=== PATIENT | female | born 1945 | race Caucasian/White ===

== ENCOUNTER 2017-02-04 19:31 | Emergency (ER) | payer OTHER ==
--- NOTE | 2017-02-04 20:06 | ED CLINICAL REPORT ---
Clinical Report - Physicians/Mid Levels [facility] [address] [place] [address] 02/04/2017 19:32 Patient: JUAN HOPSON Time Seen: 19:51 Alex 2016. Arrived- By ambulance. (BLS). Historian- patient and EMS personnel. CPT: Critical care < 74 min plus (#[id number]). EKG interpretation (#[id number]). HISTORY OF PRESENT ILLNESS Chief Complaint: CHEST PAIN. This started today 3 hours THERAPIST RESPIRATORY and is still present. Onset during light activity. At its maximum, severity described as moderate. When seen in the E.D., severity described as severe. Modifying factors. Not worsened by anything. Not relieved by anything. It is described as pressure and it is described as located in the right shoulder and arm and left shoulder and arm. The patient has had nausea and has experienced diaphoresis. No vomiting or difficulty breathing. Similar symptoms previously: None. Recent medical care: Not recently seen/assessed. REVIEW OF SYSTEMS No fever, chills, cough, pedal edema or calf pain. No fainting episodes, abdominal pain, black stools, difficulty with urination or skin rash. No enlarged lymph nodes, sore throat, diabetic symptoms or easy bruising. All systems otherwise negative, except as recorded above. PAST HISTORY Hypertension. No history of coronary artery disease, heart disease, lung disease, neurological disease or GI disease. No history of congestive heart failure, heart rhythm problems, pulmonary embolism, hyperlipidemia or diabetes mellitus. Medications: None. Allergies: Penicillin. SOCIAL HISTORY Heavy tobacco smoker (cigarette)- 1 pack per day. ADDITIONAL NOTES The nursing notes have been reviewed. PHYSICAL EXAM Vital Signs: 02/04/2017 19:35 BP: 95/72. HR: 61. RR: 22. O2 saturation: 97%. Temp: 98.0 F. Appearance: Alert. Appears to be in pain. Patient in moderate distress. Eyes: Eyes normal inspection. ENT: Pharynx normal. Neck: Normal inspection. No JVD or carotid bruit. CVS: Normal heart rate and rhythm. Heart sounds normal. Pulses normal. No cardiac murmur. Respiratory: No respiratory distress. Breath sounds normal. Chest nontender. Abdomen: Soft and nontender. Back: Normal external inspection. Skin: Skin warm. Normal skin color. No rash. Extremities: Extremities exhibit normal ROM. No calf tenderness. No lower extremity edema. Neuro: Oriented X 3. No motor deficit. No sensory deficit. LABS, X-RAYS, AND EKG EKG: No acute ischemia. ST elevation in lead I, II, III and aVF- consistent with inferior infarction. Prior EKG unavailable. The study has been interpreted contemporaneously. The study has been independently viewed by me. The EKG appears to be a good tracing. Laboratory Tests: CBC w Diff: (SUELLEN: 02/04/2017 19:50) ( MsgRcvd 02/04/2017 20:22) Final results Test Result Flag Units (Reference) WHITE BLOOD COUNT 15.7 H K/uL (4.5-11.5) RED BLOOD COUNT 5.29 H M/uL (4.00-5.20) HEMOGLOBIN 15.1 gm/dL (12.0-16.0) HEMATOCRIT 44.9 % (36.0-46.0) MEAN CELL VOLUME 85 fL (80-100) MEAN CORPUSCULAR HGB 29 pg (26-34) MEAN CORPUSCULAR HGB CONC 34 g/dL (31-37) RED CELL DISTRIBUTION WIDTH 13.9 % (11.6-14.8) PLATELET COUNT 378 K/uL (150-400) NEUTROPHIL % 65.2 % (50-75) LYMPH % 25.4 % (25-40) MONO % 7.3 % (3-14) EOSINOPHIL % 1.3 % (0-4) BASOPHIL % 0.8 % (0-2) PT with INR: (SUELLEN: 02/04/2017 19:50) ( MsgRcvd 02/04/2017 20:37) Final results Test Result Flag Units (Reference) INR 1.0 (0.8-1.2) Low Intensity Therapy: INR 1.5-2.0 PT range 18.5-23.1Mod.Intensity Therapy: INR 2.0-3.0 PT range 23.1-31.5High Intensity Therapy: INR 2.5-3.5 PT range 27.4-35.5High Intensity Therapy 2: INR 3.0-4.0 PT range 31.5-39.3 APTT 24 SECONDS (24-34) CHEM 13 PANEL: (SUELLEN: 02/04/2017 19:50) ( MsgRcvd 02/04/2017 20:29) Final results Test Result Flag Units (Reference) GLUCOSE 120 H mg/dL (70-110) BUN 20 H mg/dL (7-18) CREATININE 1.1 mg/dL (0.6-1.3) Estimated GFR 52.19 mL/min Estimated GFR- >60 mL/min Note: Persistent reduction over 3 months in eGFR<60 mL/min/1.73 m2 defines CKD. Patients with eGFR values>=60 mL/min/1.73 m2 may also have CKD if evidence ofpersistent proteinuria. Additional information may be foundat www.kidney.org. SODIUM 140 mmol/L (136-145) POTASSIUM 3.7 mmol/L (3.5-5.1) CHLORIDE 103 mmol/L (98-107) CARBON DIOXIDE 24 mmol/L (21-32) CALCIUM 9.2 mg/dL (8.5-10.1) TOTAL PROTEIN 7.2 g/dL (6.4-8.2) ALBUMIN 3.8 g/dL (3.3-5.0) BILIRUBIN, TOTAL 0.3 mg/dL (0.0-1.0) ALKALINE PHOSPHATASE 90 U/L (46-116) AST (SGOT) 14 L U/L (15-37) ALT (SGPT) 16 U/L (12-78) MAGNESIUM 2.0 mg/dL (1.8-2.4) CPK 62 U/L (24-260) TROPONIN I <0.05 ng/mL (0.00-1.5) TROPONIN REFERENCE RANGE:<0.1 NEGATIVE0.1-1.5 INDETERMINANT>1.5 POSITIVE . PROGRESS AND PROCEDURES Course of Care: heplock times 2 Oxygen 1 liter ASA 325 mg po Plavix 300 mg po Heparin 5,000 unit bolus Morphine 2 mg IV Morphine 4 mg IV Symptoms better. Critical care performed (30 minutes). Time is exclusive of separately billable procedures. Time includes: direct patient care, patient reassessment, coordination of patient care, interpretation of data (laboratory data, pulse oximetry and cardiac output measurements), review of patient's medical records, medical consultation and documentation of patient care- see progress notes. Procedures included in critical care time: peripheral IV placement and phlebotomy- see progress notes. Procedures excluded from critical care time: electrocardiography. Discussed case with health care provider (Reginald Jordan: [facility]: Accepts transfer.). Patient/family counseled. Disposition: Transferred to [facility]. CLINICAL IMPRESSION Acute inferior myocardial infarction with ST elevation (STEMI). Aspirin administered in ED. (Electronically signed by Roger Gonzalez MD 02/05/2017 15:29)
--- NOTE | 2017-02-04 20:06 | ED ORDER SUMMARY ---
..... Patient: JUAN HOPSON OrderSheet [facility] VisitID: [id number] [place] [address] 71y, F Registration Date/Time: 02/04/2017 ORDER SHEET Weight: 61.2 kg (stated) Allergies: Penicillin GENERAL ORDERS: EKG - ER Stat (19:40 02/04/2017 ASchmuck per protocol) (19:55 [facility] Cardiac Panel Stat (20:02/04/2017 AMcQuoid ER Tech1 verbal order read back to Dominic RODRIGUEZ) (Ack 20:11 AMcQuoid ER Tech1) (20:21 ASchmuck) PT with INR Urgent (:02/04/2017 AMcQuoid ER Tech1 verbal order read back to Dominic RODRIGUEZ) (Ack 20:11 AMcQuoid ER Tech1) (20:21 ASchmuck) PTT Urgent (:02/04/2017 AMcQuoid ER Tech1 verbal order read back to Dominic RODRIGUEZ) (Ack 20:11 AMcQuoid ER Tech1) (20:21 ASchmuck) MEDICATION ORDERS: Aspirin PO 325 mg (NOW) (19:56 02/04/2017 Dominic RODRIGUEZ) (20:25 ASchmuck) Plavix PO 300 mg (NOW) (19:56 02/04/2017 Dominic RODRIGUEZ) (20:25 ASchmuck) IV FLUIDS: Heparin IV : initial bolus 5,000 units, then 1,000 units per hour for 6h (NOW); Urgent (19:56 02/04/2017 Dominic RODRIGUEZ) (20:26 ASchmuck) Morphine IV 2 mg (NOW) (19:57 02/04/2017 Dominic RODRIGUEZ) (20:27 ASchmuck) Zofran IV 4 mg (NOW) (19:57 02/04/2017 Dominic RODRIGUEZ) (20:27 ASchmuck) Morphine IV 4 mg (NOW) (20:22 02/04/2017 Dominic RODRIGUEZ) (20:27 ASchmuck) IV NS : initial bolus 1000 mL (1000 mL/hr), then 1000 mL/hr for X1 (NOW); [place] (20:38 02/04/2017 Rachel verbal order read back to Dominic RODRIGUEZ) (Cancelled: Wrong Order20:39 Mireyaamber) IV NS : initial bolus 1000 mL (1000 mL/hr), then none - for X1 (NOW); Stat (20:40 02/04/2017 Dominic RODRIGUEZ) (20:42 Rachel) ORDER SHEET NOTES: [Electronically signed by Wendy White (00:52 02/05/2017)] [Electronically signed by Roger Gonzalez MD (15:29 02/05/2017)] [Electronically locked/signed by Wendy White (00:52 02/05/2017)]
--- NOTE | 2017-02-04 20:06 | ED NURSING NOTES ---
Clinical Report - Nurses [facility] [address] [place] [address] 02/04/2017 19:32 Patient: JUAN HOPSON TRIAGE Triage time 19:32 Feb 04 2017. Acuity: LEVEL 2. Chief Complaint: (Pain in both arms, neck, and face.). 19:35 02/04/17. Alert. SEPSIS SCREEN: Sepsis Screen. Negative (no infection suspected/documented). KALI COMA SCORE: [place] Coma Scale: 15- eyes open spontaneously (4); best verbal response- oriented x 4 (5); best motor response- obeys commands (6). --19:59 Wendy White 19:35 02/04/17. BP: 95/72. HR: 61. RR: 22. O2 saturation: 97%. Temp: 98.0 F. Pain level now 10/10. --19:59 Wendy White. Weight: 61.2 kg stated. Height/Length: 62 inches Per Patient. BMI: 24.7. --19:57 Wendy White. Medications None. --19:34 Wendy White. Medication/allergy information source: EMS. --19:59 Wendy White. Allergies Penicillin. --19:34 Wendy White. History Arrived by EMS. Historian: EMS and patient. Accompanied by (EMS). No primary care physician. This started just prior to arrival. ( Pt reports not having anything to drink today aside from coffee.). Treatment DATA CENTER ARCHITECT: BP: 154/90. HR: 90. RR: 16. Temp: 98.6. O2 saturation: 93 % room air. 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 10/10 pressure in arms. No cardiac history. Pt became sweaty with last pain episode. BLS cancelled medics d/t "it wasn't chest pain."). PAST MEDICAL HX: Immunizations not up to date. SOCIAL HX: Smoker- current status unknown (cigarette) (2 PPD). No alcohol use or drug use. FALL RISK ASSESSMENT: Fall risk assessment completed. No fall risk identified. NUTRITIONAL RISK ASSESSMENT: The nutritional risk assessment revealed no deficiencies. FUNCTIONAL ASSESSMENT: Functional assessment: no impairments noted. LEARNING NEEDS ASSESSMENT: The learning needs assessment revealed no barriers. SKIN INTEGRITY ASSESSMENT: Skin integrity risk assessment completed. No skin integrity risk identified. --19:59 Wendy White. PROBLEMS: None. --19:34 Wendy White. Assessment The patient states feels the same. --19:59 Wendy White. Interventions ID band on patient. --19:59 Wendy White. PHYSICAL ASSESSMENT 19:45 02/04/17. To room via stretcher. Patient gowned. GENERAL / NEURO / PSYCH: Alert. Oriented X 4. Appears in pain. HEENT: Pupils equal, round and reactive to light. No facial asymmetry noted. RESPIRATORY: Respirations not labored. Chest nontender. CVS: Cardiac rhythm: (ST elevation). Pulses: right radial 2+ and left radial 2+. Capillary refill less than 2 seconds. GI / : Abdomen soft and nontender. SKIN: Skin is pale. Skin is slightly diaphoretic. --20:19 Wendy White. NURSING PROGRESS NOTES 19:36 02/04/2017 Site #2 started via IV in the right antecubital space with an 20g angiocath, with aseptic technique and good blood return; three attempts. Saline lock flushed with 10 mL saline (First two attempts by this RN, successful start done by RADHA Goodman). --20:24 Wendy White 19:40 02/04/17. The plan of care for this patient has been created. Oxygen administered by nasal cannula at 1.5 liters. principal consulting engineer, pulse oximeter and NIBP monitor placed on patient; cardiac/vascular sonographer- Lead II and V5; monitor alarms on. Patient gowned. Head of bed elevated. Reassurance given. Two patient identifiers checked. Call light placed in reach. Side rails up x 2. Bed placed in lowest position. Brakes of bed on. Patient ready for evaluation- chart flagged and ED physician notified. --20:20 Wendy White 19:40 02/04/2017 Site #1 started via IV in the left antecubital space with an 18g angiocath, with aseptic technique and good blood return; one attempt. Blood drawn: rainbow set. Labeled in the presence of the patient and sent to the lab. Saline lock flushed with 10 mL saline. --20:24 Wendy White 19:45 02/04/2017 Started bag #1 1000 mL IV Fluids IV NS (Saline); at 1000 mL/hr over 1 hour(s) via site #1 via IV pump. Allergies verified and confirmed 5 rights. IV patency established. IV site checked: no pain, redness, or swelling. IV flushed thoroughly pre- and post-medication administration. --20:42 Wendy White 19:49 02/04/2017 Zofran (Ondansetron HCl) IVP 4 mg given over 30 second(s) via site #1. Allergies verified and confirmed 5 rights. IV patency established. IV site checked: no pain, redness, or swelling. IV flushed thoroughly pre- and post-medication administration. IVP given by RN. --20:27 Wendy White 19:50 02/04/2017 Morphine IVP 2 mg given over 30 second(s) via site #1. Allergies verified and confirmed 5 rights. IV patency established. IV site checked: no pain, redness, or swelling. IV flushed thoroughly pre- and post-medication administration. IVP given by RN. --20:27 Wendy White 20:03 02/04/2017 Aspirin PO Tablets 324 mg given. Allergies verified and confirmed 5 rights. --20:25 Wendy White 20:03 02/04/2017 Heparin IVP 5000 unit given over 15 second(s) via site #1. Allergies verified and confirmed 5 rights. IV patency established. IV site checked: no pain, redness, or swelling. IV flushed thoroughly pre- and post-medication administration. IVP given by RN (Dose verified with RADHA Hair. Bolus held d/t medics here for transport and unable to maintain.). --20:26 Wendy White 20:04 02/04/2017 Plavix (Clopidogrel Bisulfate) PO Tablets 300 mg given. Allergies verified and confirmed 5 rights. --20:25 Wendy White 20:05 02/04/2017 Morphine IVP 4 mg given over 1 minute(s) via site #1. Allergies verified and confirmed 5 rights. IV patency established. IV site checked: no pain, redness, or swelling. IV flushed thoroughly pre- and post-medication administration. IVP given by RN (Given by RADHA Hair). --20:27 Wendy White 19:45 02/04/17. BP: 103/73. HR: 60. RR: 20. O2 saturation: 98% on nasal cannula at 1 liters/minute. Pain level now: 05/17. --20:30 Wendy White 20:00 02/04/17. BP: 106/76. HR: 63. RR: 20. O2 saturation: 97% on nasal cannula at 1 liters/minute. Pain level now: 05/17. --20:31 Wendy White 20:12 02/04/2017 Site #[address] upon transfer; patent, no pain and no signs of infection or infiltration. --20:36 Wendy White 20:12 02/04/2017 Site #[address] upon admission; patent, no pain and no signs of infection or infiltration. --20:37 Wendy White 20:12 02/04/2017 IV Fluids IV NS Continued: upon transfer at the rate of 1000 mL/hr. 600 mL remaining bag #1. IV patency established. IV site checked: no pain, redness, or swelling. IV flushed thoroughly. --20:43 Wendy White. DISPOSITION / DISCHARGE <<STRICKEN ENTRY-- 00:51 02/04/17. Condition at departure: stable. The goals identified in the patient's plan of care were met. Transferred to [facility]. Summary of care provided to transport team. Transported via ambulance by EMS with monitor, IV, O2 and emergency medications. Report was given to a nurse via a phone call. Report included patient's care, treatment, medications, reviewed medication reconcilliation, and condition (including any recent changes or anticipated changes). All questions were answered. Report was acknowledged and care was transferred. Patient's personal items include, all belongings sent with patient. FALL RISK ASSESSMENT: Fall risk assessment completed. No fall risk identified. --00:51 Wendy White --END STRIKE>> Correction --00:51 Wendy White 20:12 02/04/17. BP: deferred. HR: deferred. RR: deferred. O2 saturation: deferred. Temp: deferred. Pain level now deferred. --00:51 Wendy White 20:12 02/04/17. Departure time: 20:12 Jan 17 2017. Condition at departure: stable. The goals identified in the patient's plan of care were met. Transferred to [facility]. Summary of care provided to transport team. Transported via ambulance by EMS with monitor, IV, O2 and emergency medications. Report was given to a nurse via a phone call. Report included patient's care, treatment, medications, reviewed medication reconcilliation, and condition (including any recent changes or anticipated changes). All questions were answered. Report was acknowledged and care was transferred. Patient's personal items include, all belongings sent with patient. FALL RISK ASSESSMENT: Fall risk assessment completed. No fall risk identified. --00:51 Wendy White. Locked/Released at 02/05/2017 0:52 by Wendy White,
--- NOTE | 2017-02-04 20:06 | ED CLINICAL REPORT ---
Clinical Report - Physicians/Mid Levels [facility] [address] [place] [address] 02/04/2017 19:32 Patient: JUAN HOPSON Time Seen: 19:51 Alex 2016. Arrived- By ambulance. (BLS). Historian- patient and EMS personnel. CPT: Critical care < 74 min plus (#[id number]). EKG interpretation (#[id number]). HISTORY OF PRESENT ILLNESS Chief Complaint: CHEST PAIN. This started today 3 hours VP & GENERAL COUNSEL and is still present. Onset during light activity. At its maximum, severity described as moderate. When seen in the E.D., severity described as severe. Modifying factors. Not worsened by anything. Not relieved by anything. It is described as pressure and it is described as located in the right shoulder and arm and left shoulder and arm. The patient has had nausea and has experienced diaphoresis. No vomiting or difficulty breathing. Similar symptoms previously: None. Recent medical care: Not recently seen/assessed. REVIEW OF SYSTEMS No fever, chills, cough, pedal edema or calf pain. No fainting episodes, abdominal pain, black stools, difficulty with urination or skin rash. No enlarged lymph nodes, sore throat, diabetic symptoms or easy bruising. All systems otherwise negative, except as recorded above. PAST HISTORY Hypertension. No history of coronary artery disease, heart disease, lung disease, neurological disease or GI disease. No history of congestive heart failure, heart rhythm problems, pulmonary embolism, hyperlipidemia or diabetes mellitus. Medications: None. Allergies: Penicillin. SOCIAL HISTORY Heavy tobacco smoker (cigarette)- 1 pack per day. ADDITIONAL NOTES The nursing notes have been reviewed. PHYSICAL EXAM Vital Signs: 02/04/2017 19:35 BP: 95/72. HR: 61. RR: 22. O2 saturation: 97%. Temp: 98.0 F. Appearance: Alert. Appears to be in pain. Patient in moderate distress. Eyes: Eyes normal inspection. ENT: Pharynx normal. Neck: Normal inspection. No JVD or carotid bruit. CVS: Normal heart rate and rhythm. Heart sounds normal. Pulses normal. No cardiac murmur. Respiratory: No respiratory distress. Breath sounds normal. Chest nontender. Abdomen: Soft and nontender. Back: Normal external inspection. Skin: Skin warm. Normal skin color. No rash. Extremities: Extremities exhibit normal ROM. No calf tenderness. No lower extremity edema. Neuro: Oriented X 3. No motor deficit. No sensory deficit. LABS, X-RAYS, AND EKG EKG: No acute ischemia. ST elevation in lead I, II, III and aVF- consistent with inferior infarction. Prior EKG unavailable. The study has been interpreted contemporaneously. The study has been independently viewed by me. The EKG appears to be a good tracing. Laboratory Tests: CBC w Diff: (SUELLEN: 02/04/2017 19:50) ( MsgRcvd 02/04/2017 20:22) Final results Test Result Flag Units (Reference) WHITE BLOOD COUNT 15.7 H K/uL (4.5-11.5) RED BLOOD COUNT 5.29 H M/uL (4.00-5.20) HEMOGLOBIN 15.1 gm/dL (12.0-16.0) HEMATOCRIT 44.9 % (36.0-46.0) MEAN CELL VOLUME 85 fL (80-100) MEAN CORPUSCULAR HGB 29 pg (26-34) MEAN CORPUSCULAR HGB CONC 34 g/dL (31-37) RED CELL DISTRIBUTION WIDTH 13.9 % (11.6-14.8) PLATELET COUNT 378 K/uL (150-400) NEUTROPHIL % 65.2 % (50-75) LYMPH % 25.4 % (25-40) MONO % 7.3 % (3-14) EOSINOPHIL % 1.3 % (0-4) BASOPHIL % 0.8 % (0-2) PT with INR: (SUELLEN: 02/04/2017 19:50) ( MsgRcvd 02/04/2017 20:37) Final results Test Result Flag Units (Reference) INR 1.0 (0.8-1.2) Low Intensity Therapy: INR 1.5-2.0 PT range 18.5-23.1Mod.Intensity Therapy: INR 2.0-3.0 PT range 23.1-31.5High Intensity Therapy: INR 2.5-3.5 PT range 27.4-35.5High Intensity Therapy 2: INR 3.0-4.0 PT range 31.5-39.3 APTT 24 SECONDS (24-34) CHEM 13 PANEL: (SUELLEN: 02/04/2017 19:50) ( MsgRcvd 02/04/2017 20:29) Final results Test Result Flag Units (Reference) GLUCOSE 120 H mg/dL (70-110) BUN 20 H mg/dL (7-18) CREATININE 1.1 mg/dL (0.6-1.3) Estimated GFR 52.19 mL/min Estimated GFR- >60 mL/min Note: Persistent reduction over 3 months in eGFR<60 mL/min/1.73 m2 defines CKD. Patients with eGFR values>=60 mL/min/1.73 m2 may also have CKD if evidence ofpersistent proteinuria. Additional information may be foundat www.kidney.org. SODIUM 140 mmol/L (136-145) POTASSIUM 3.7 mmol/L (3.5-5.1) CHLORIDE 103 mmol/L (98-107) CARBON DIOXIDE 24 mmol/L (21-32) CALCIUM 9.2 mg/dL (8.5-10.1) TOTAL PROTEIN 7.2 g/dL (6.4-8.2) ALBUMIN 3.8 g/dL (3.3-5.0) BILIRUBIN, TOTAL 0.3 mg/dL (0.0-1.0) ALKALINE PHOSPHATASE 90 U/L (46-116) AST (SGOT) 14 L U/L (15-37) ALT (SGPT) 16 U/L (12-78) MAGNESIUM 2.0 mg/dL (1.8-2.4) CPK 62 U/L (24-260) TROPONIN I <0.05 ng/mL (0.00-1.5) TROPONIN REFERENCE RANGE:<0.1 NEGATIVE0.1-1.5 INDETERMINANT>1.5 POSITIVE . PROGRESS AND PROCEDURES Course of Care: heplock times 2 Oxygen 1 liter ASA 325 mg po Plavix 300 mg po Heparin 5,000 unit bolus Morphine 2 mg IV Morphine 4 mg IV Symptoms better. Critical care performed (30 minutes). Time is exclusive of separately billable procedures. Time includes: direct patient care, patient reassessment, coordination of patient care, interpretation of data (laboratory data, pulse oximetry and cardiac output measurements), review of patient's medical records, medical consultation and documentation of patient care- see progress notes. Procedures included in critical care time: peripheral IV placement and phlebotomy- see progress notes. Procedures excluded from critical care time: electrocardiography. Discussed case with health care provider (Reginald Jordan: [facility]: Accepts transfer.). Patient/family counseled. Disposition: Transferred to [facility]. CLINICAL IMPRESSION Acute inferior myocardial infarction with ST elevation (STEMI). Aspirin administered in ED. (Electronically signed by Roger Gonzalez MD 02/05/2017 15:29)
--- NOTE | 2017-02-04 20:06 | ED NURSING NOTES ---
Clinical Report - Nurses [facility] [address] [place] [address] 02/04/2017 19:32 Patient: JUAN HOPSON TRIAGE Triage time 19:32 Feb 04 2017. Acuity: LEVEL 2. Chief Complaint: (Pain in both arms, neck, and face.). 19:35 02/04/17. Alert. SEPSIS SCREEN: Sepsis Screen. Negative (no infection suspected/documented). KALI COMA SCORE: [place] Coma Scale: 15- eyes open spontaneously (4); best verbal response- oriented x 4 (5); best motor response- obeys commands (6). --19:59 Wendy White 19:35 02/04/17. BP: 95/72. HR: 61. RR: 22. O2 saturation: 97%. Temp: 98.0 F. Pain level now 10/10. --19:59 Wendy White. Weight: 61.2 kg stated. Height/Length: 62 inches Per Patient. BMI: 24.7. --19:57 Wendy White. Medications None. --19:34 Wendy White. Medication/allergy information source: EMS. --19:59 Wendy White. Allergies Penicillin. --19:34 Wendy White. History Arrived by EMS. Historian: EMS and patient. Accompanied by (EMS). No primary care physician. This started just prior to arrival. ( Pt reports not having anything to drink today aside from coffee.). 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 HR: 90. RR: 16. Temp: 98.6. O2 saturation: 93 % room air. 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 10/10 pressure in arms. No cardiac history. Pt became sweaty with last pain episode. BLS cancelled medics d/t "it wasn't chest pain."). PAST MEDICAL HX: Immunizations not up to date. SOCIAL HX: Smoker- current status unknown (cigarette) (2 PPD). No alcohol use or drug use. FALL RISK ASSESSMENT: Fall risk assessment completed. No fall risk identified. NUTRITIONAL RISK ASSESSMENT: The nutritional risk assessment revealed no deficiencies. FUNCTIONAL ASSESSMENT: Functional assessment: no impairments noted. LEARNING NEEDS ASSESSMENT: The learning needs assessment revealed no barriers. SKIN INTEGRITY ASSESSMENT: Skin integrity risk assessment completed. No skin integrity risk identified. --19:59 Wendy White. PROBLEMS: None. --19:34 Wendy White. Assessment The patient states feels the same. --19:59 Wendy White. Interventions ID band on patient. --19:59 Wendy White. PHYSICAL ASSESSMENT 19:45 02/04/17. To room via stretcher. Patient gowned. GENERAL / NEURO / PSYCH: Alert. Oriented X 4. Appears in pain. HEENT: Pupils equal, round and reactive to light. No facial asymmetry noted. RESPIRATORY: Respirations not labored. Chest nontender. CVS: Cardiac rhythm: (ST elevation). Pulses: right radial 2+ and left radial 2+. Capillary refill less than 2 seconds. GI / : Abdomen soft and nontender. SKIN: Skin is pale. Skin is slightly diaphoretic. --20:19 Wendy White. NURSING PROGRESS NOTES 19:36 02/04/2017 Site #2 started via IV in the right antecubital space with an 20g angiocath, with aseptic technique and good blood return; three attempts. Saline lock flushed with 10 mL saline (First two attempts by this RN, successful start done by RADHA Goodman). --20:24 Wendy White 19:40 02/04/17. The plan of care for this patient has been created. Oxygen administered by nasal cannula at 1.5 liters. potline monitor, pulse oximeter and NIBP monitor placed on patient; cardiac rehabilitation program director- Lead II and V5; monitor alarms on. Patient gowned. Head of bed elevated. Reassurance given. Two patient identifiers checked. Call light placed in reach. Side rails up x 2. Bed placed in lowest position. Brakes of bed on. Patient ready for evaluation- chart flagged and ED physician notified. --20:20 Wendy White 19:40 02/04/2017 Site #1 started via IV in the left antecubital space with an 18g angiocath, with aseptic technique and good blood return; one attempt. Blood drawn: rainbow set. Labeled in the presence of the patient and sent to the lab. Saline lock flushed with 10 mL saline. --20:24 Wendy White 19:45 02/04/2017 Started bag #1 1000 mL IV Fluids IV NS (Saline); at 1000 mL/hr over 1 hour(s) via site #1 via IV pump. Allergies verified and confirmed 5 rights. IV patency established. IV site checked: no pain, redness, or swelling. IV flushed thoroughly pre- and post-medication administration. --20:42 Wendy White 19:49 02/04/2017 Zofran (Ondansetron HCl) IVP 4 mg given over 30 second(s) via site #1. Allergies verified and confirmed 5 rights. IV patency established. IV site checked: no pain, redness, or swelling. IV flushed thoroughly pre- and post-medication administration. IVP given by RN. --20:27 Wendy White 19:50 02/04/2017 Morphine IVP 2 mg given over 30 second(s) via site #1. Allergies verified and confirmed 5 rights. IV patency established. IV site checked: no pain, redness, or swelling. IV flushed thoroughly pre- and post-medication administration. IVP given by RN. --20:27 Wendy White 20:03 02/04/2017 Aspirin PO Tablets 324 mg given. Allergies verified and confirmed 5 rights. --20:25 Wendy White 20:03 02/04/2017 Heparin IVP 5000 unit given over 15 second(s) via site #1. Allergies verified and confirmed 5 rights. IV patency established. IV site checked: no pain, redness, or swelling. IV flushed thoroughly pre- and post-medication administration. IVP given by RN (Dose verified with RADHA Hair. Bolus held d/t medics here for transport and unable to maintain.). --20:26 Wendy White 20:04 02/04/2017 Plavix (Clopidogrel Bisulfate) PO Tablets 300 mg given. Allergies verified and confirmed 5 rights. --20:25 Wendy White 20:05 02/04/2017 Morphine IVP 4 mg given over 1 minute(s) via site #1. Allergies verified and confirmed 5 rights. IV patency established. IV site checked: no pain, redness, or swelling. IV flushed thoroughly pre- and post-medication administration. IVP given by RN (Given by RADHA Hair). --20:27 Wendy White 19:45 02/04/17. BP: 103/73. HR: 60. RR: 20. O2 saturation: 98% on nasal cannula at 1 liters/minute. Pain level now: 05/17. --20:30 Wendy White 20:00 02/04/17. BP: 106/76. HR: 63. RR: 20. O2 saturation: 97% on nasal cannula at 1 liters/minute. Pain level now: 05/17. --20:31 Wendy White 20:12 02/04/2017 Site #[address] upon transfer; patent, no pain and no signs of infection or infiltration. --20:36 Wendy White 20:12 02/04/2017 Site #[address] upon admission; patent, no pain and no signs of infection or infiltration. --20:37 Wendy White 20:12 02/04/2017 IV Fluids IV NS Continued: upon transfer at the rate of 1000 mL/hr. 600 mL remaining bag #1. IV patency established. IV site checked: no pain, redness, or swelling. IV flushed thoroughly. --20:43 Wendy White. DISPOSITION / DISCHARGE <<STRICKEN ENTRY-- 00:51 02/04/17. Condition at departure: stable. The goals identified in the patient's plan of care were met. Transferred to [facility]. Summary of care provided to transport team. Transported via ambulance by EMS with monitor, IV, O2 and emergency medications. Report was given to a nurse via a phone call. Report included patient's care, treatment, medications, reviewed medication reconcilliation, and condition (including any recent changes or anticipated changes). All questions were answered. Report was acknowledged and care was transferred. Patient's personal items include, all belongings sent with patient. FALL RISK ASSESSMENT: Fall risk assessment completed. No fall risk identified. --00:51 Wendy White --END STRIKE>> Correction --00:51 Wendy White 20:12 02/04/17. BP: deferred. HR: deferred. RR: deferred. O2 saturation: deferred. Temp: deferred. Pain level now deferred. --00:51 Wendy White 20:12 02/04/17. Departure time: 20:12 Jan 17 2017. Condition at departure: stable. The goals identified in the patient's plan of care were met. Transferred to [facility]. Summary of care provided to transport team. Transported via ambulance by EMS with monitor, IV, O2 and emergency medications. Report was given to a nurse via a phone call. Report included patient's care, treatment, medications, reviewed medication reconcilliation, and condition (including any recent changes or anticipated changes). All questions were answered. Report was acknowledged and care was transferred. Patient's personal items include, all belongings sent with patient. FALL RISK ASSESSMENT: Fall risk assessment completed. No fall risk identified. --00:51 Wendy White. Locked/Released at 02/05/2017 0:52 by Wendy White,
--- NOTE | 2017-02-04 20:06 | ED ORDER SUMMARY ---
..... Patient: JUAN HOPSON OrderSheet [facility] VisitID: [id number] [place] [address] 71y, F Registration Date/Time: 02/04/2017 ORDER SHEET Weight: 61.2 kg (stated) Allergies: Penicillin GENERAL ORDERS: EKG - ER Stat (19:40 02/04/2017 ASchmuck per protocol) ([facility] Cardiac Panel Stat (20:02/04/2017 AMcQuoid ER Tech1 verbal order read back to Dominic RODRIGUEZ) (Ack 20:11 AMcQuoid ER Tech1) (20:21 ASchmuck) PT with INR Urgent (:02/04/2017 AMcQuoid ER Tech1 verbal order read back to Dominic RODRIGUEZ) (Ack 20:11 AMcQuoid ER Tech1) (20:21 ASchmuck) PTT Urgent (:02/04/2017 AMcQuoid ER Tech1 verbal order read back to Dominic RODRIGUEZ) (Ack 20:11 AMcQuoid ER Tech1) (20:21 ASchmuck) MEDICATION ORDERS: Aspirin PO 325 mg (NOW) (19:56 02/04/2017 Dominic RODRIGUEZ) (20:25 ASchmuck) Plavix PO 300 mg (NOW) (19:56 02/04/2017 Dominic RODRIGUEZ) (20:25 ASchmuck) IV FLUIDS: Heparin IV : initial bolus 5,000 units, then 1,000 units per hour for 6h (NOW); Urgent (19:56 02/04/2017 Dominic RODRIGUEZ) (20:26 ASchmuck) Morphine IV 2 mg (NOW) (19:57 02/04/2017 Dominic RODRIGUEZ) (20:27 ASchmuck) Zofran IV 4 mg (NOW) (19:57 02/04/2017 Dominic RODRIGUEZ) (20:27 ASchmuck) Morphine IV 4 mg (NOW) (20:22 02/04/2017 Dominic RODRIGUEZ) (20:27 ASchmuck) IV NS : initial bolus 1000 mL (1000 mL/hr), then 1000 mL/hr for X1 (NOW); [place] (20:38 02/04/2017 Rachel verbal order read back to Dominic RODRIGUEZ) (Cancelled: Wrong Order20:39 Mireyaamber) IV NS : initial bolus 1000 mL (1000 mL/hr), then none - for X1 (NOW); Stat (20:40 02/04/2017 Dominic RODRIGUEZ) (20:42 Rachel) ORDER SHEET NOTES: [Electronically signed by Wendy White (00:52 02/05/2017)] [Electronically signed by Roger Gonzalez MD (15:29 02/05/2017)] [Electronically locked/signed by Wendy White (00:52 02/05/2017)]
--- NOTE | 2017-02-05 15:29 | ED MED RECONCILIATION SUMMARY ---
Patient: JUAN HOPSON Medication Reconciliation Report [facility] VisitID: [id number] [address] [place] [address] 71y, F Registration Date/Time: 02/04/2017 Weight: 61.2 kg Height/Length: 62 in. BMI: 24.7 ALLERGIES: Penicillin The patient's Home Medications are listed below: NONE. The source(s) of the original Home Medication information: EMS The following Medications were given to the patient in the Emergency Department: Aspirin [PO] PO 324 mg, administered: 02/04/2017 8:03:00 PM Plavix [PO] PO 300 mg, administered: 02/04/2017 8:04:00 PM Heparin [IVP] IVP 5000 unit, administered: 02/04/2017 8:03:00 PM Morphine [IVP] IVP 2 mg, administered: 02/04/2017 7:50:00 PM Zofran [IVP] IVP 4 mg, administered: 02/04/2017 7:49:00 PM Morphine [IVP] IVP 4 mg, administered: 02/04/2017 8:05:00 PM IV NS IV Fluids bolus 0, then 1000 mL/hr, administered: 02/04/2017 7:45:00 PM The following Medications were prescribed to the patient: None.
--- NOTE | 2017-02-05 15:29 | ED MAR SUMMARY ---
..... Medication Administration Record [facility] [address] [place] [address] Patient: JUAN HOPSON Visit ID: [id number] 71y, F Weight: 61.2 kg Height/Length: 62 in BMI: 24.7 ALLERGIES: Penicillin Start 19:45 02/04/2017 Wendy White,, Continued Upon Transfer 20:12 02/04/2017 Wendy White, Medication Administered: IV NS (SALINE), Dose: IV Fluids over 1 hour(s), Rate: 1000 mL/hr, Dispensed: 1000 mL bag, Site: #1 left AC. Medication Ordered: IV NS : initial bolus 1000 mL (1000 mL/hr), then none - for X1 (NOW); Stat. Given 19:49 02/04/2017 Wendy White, Medication Administered: ZOFRAN [IVP] (ONDANSETRON HCL), Dose: 4 mg IVP over 30 second(s), Site: #1 left AC. Medication Ordered: Zofran IV 4 mg (NOW). Given 19:50 02/04/2017 Wendy White, Medication Administered: MORPHINE [IVP], Dose: 2 mg IVP over 30 second(s), Site: #1 left AC. Medication Ordered: Morphine IV 2 mg (NOW). Given 20:03 02/04/2017 Wendy White, Medication Administered: HEPARIN [IVP], Dose: 5000 unit IVP over 15 second(s), Site: #1 left AC. Medication Ordered: Heparin IV : initial bolus 5,000 units, then 1,000 units per hour for 6h (NOW); Urgent. Given 20:02/04/2017 Wendy White, Medication Administered: ASPIRIN [PO], Dose: 324 mg Tablets PO. Medication Ordered: Aspirin PO 325 mg (NOW). Given :02/04/2017 Wendy White, Medication Administered: PLAVIX [PO] (CLOPIDOGREL BISULFATE), Dose: 300 mg Tablets PO. Medication Ordered: Plavix PO 300 mg (NOW). Given 20:02/04/2017 Wendy White, Medication Administered: MORPHINE [IVP], Dose: 4 mg IVP over 1 minute(s), Site: #1 left AC. Medication Ordered: Morphine IV 4 mg (NOW).
--- NOTE | 2017-02-05 15:29 | ED DISCHARGE INSTRUCTIONS ---
Patient: JUAN HOPSON General Instructions [facility] VisitID: [id number] [address] [place] [address] 71y, F Registration Date/Time: 02/04/2017 Acute inferior myocardial infarction with ST elevation (STEMI). Aspirin administered in ED. (Electronically signed by Roger Gonzalez MD 02/05/2017 15:29)
--- NOTE | 2017-02-05 15:29 | ED DISCHARGE INSTRUCTIONS ---
Patient: JUAN HOPSON General Instructions [facility] VisitID: [id number] [address] [place] [address] 71y, F Registration Date/Time: 02/04/2017 Acute inferior myocardial infarction with ST elevation (STEMI). Aspirin administered in ED. (Electronically signed by Roger Gonzalez MD 02/05/2017 15:29)
--- NOTE | 2017-02-05 15:29 | ED MED RECONCILIATION SUMMARY ---
Patient: JUAN HOPSON Medication Reconciliation Report [facility] VisitID: [id number] [address] [place] [address] 71y, F Registration Date/Time: 02/04/2017 Weight: 61.2 kg Height/Length: 62 in. BMI: 24.7 ALLERGIES: Penicillin The patient's Home Medications are listed below: NONE. The source(s) of the original Home Medication information: EMS The following Medications were given to the patient in the Emergency Department: Aspirin [PO] PO 324 mg, administered: 02/04/2017 8:03:00 PM Plavix [PO] PO 300 mg, administered: 02/04/2017 8:04:00 PM Heparin [IVP] IVP 5000 unit, administered: 02/04/2017 8:03:00 PM Morphine [IVP] IVP 2 mg, administered: 02/04/2017 7:50:00 PM Zofran [IVP] IVP 4 mg, administered: 02/04/2017 7:49:00 PM Morphine [IVP] IVP 4 mg, administered: 02/04/2017 8:05:00 PM IV NS IV Fluids bolus 0, then 1000 mL/hr, administered: 02/04/2017 7:45:00 PM The following Medications were prescribed to the patient: None.
--- NOTE | 2017-02-05 15:29 | ED MAR SUMMARY ---
..... Medication Administration Record [facility] [address] [place] [address] Patient: JUAN HOPSON Visit ID: [id number] 71y, F Weight: 61.2 kg Height/Length: 62 in BMI: 24.7 ALLERGIES: Penicillin Start 19:45 02/04/2017 Wendy White,, Continued Upon Transfer 20:12 02/04/2017 Wendy White, Medication Administered: IV NS (SALINE), Dose: IV Fluids over 1 hour(s), Rate: 1000 mL/hr, Dispensed: 1000 mL bag, Site: #1 left AC. Medication Ordered: IV NS : initial bolus 1000 mL (1000 mL/hr), then none - for X1 (NOW); Stat. Given 19:49 02/04/2017 Wendy White, Medication Administered: ZOFRAN [IVP] (ONDANSETRON HCL), Dose: 4 mg IVP over 30 second(s), Site: #1 left AC. Medication Ordered: Zofran IV 4 mg (NOW). Given 19:50 02/04/2017 Wendy White, Medication Administered: MORPHINE [IVP], Dose: 2 mg IVP over 30 second(s), Site: #1 left AC. Medication Ordered: Morphine IV 2 mg (NOW). Given 20:03 02/04/2017 Wendy White, Medication Administered: HEPARIN [IVP], Dose: 5000 unit IVP over 15 second(s), Site: #1 left AC. Medication Ordered: Heparin IV : initial bolus 5,000 units, then 1,000 units per hour for 6h (NOW); Urgent. Given 20:02/04/2017 Wendy White, Medication Administered: ASPIRIN [PO], Dose: 324 mg Tablets PO. Medication Ordered: Aspirin PO 325 mg (NOW). Given :02/04/2017 Wendy White, Medication Administered: PLAVIX [PO] (CLOPIDOGREL BISULFATE), Dose: 300 mg Tablets PO. Medication Ordered: Plavix PO 300 mg (NOW). Given 20:02/04/2017 Wendy White, Medication Administered: MORPHINE [IVP], Dose: 4 mg IVP over 1 minute(s), Site: #1 left AC. Medication Ordered: Morphine IV 4 mg (NOW).
== END 2017-02-04 20:12 | disposition short-term general hospital (02) ==
LOC: ED SRH 19:31
DX: I21.19 ST elevation (STEMI) myocardial infarction involving other coronary artery of inferior wall (principal); F17.210 Nicotine dependence, cigarettes, uncomplicated; I10 Essential (primary) hypertension
CPT/HCPCS: 90100; 90616; 92610; 92720; 94001; 94060; 95059